=== PATIENT | male | born 1965 | race Caucasian/White ===

== ENCOUNTER 2021-03-01 08:18 | Emergency (ER) | payer MEDICARE, SELFPAY ==
[~2021-03-01 08:18] MED LIST: ALLEGRA ALLERG180 MG PO; ASPIRIN CHEWABL81 MG PO; BENAZEPRIL HCL20 MG PO; BENTYL 20MG TAB20 MG PO; CARBATROL200 MG PO; CELEBREX 200MG200 MG PO; CLOPIDOGREL75 MG PO; COREG6.25 MG PO; CYCLOBENZAPRINE10 MG PO; GABAPENTIN100 MG NG; GLUCOPHAGE500 MG PO; IMDUR ER TAB 6060 MG PO; K-DUR TAB 10 M10 MEQ PO; LEVSIN TAB 00.125 MG PO; LIPITOR80 MG PO; LORTAB 7.5-3251 EACH PO; NORVASC10 MG PO; NOVOLIN 70100 UNIT/2 SQ; PLAQUENIL200 MG PO; PROTONIX40 MG PO; XIFAXAN 550 MG550 MG PO; ZOFRAN ODT 4 MG4 MG PO
[2021-03-01 09:36] LABS: HEMOGLOBIN 16.1 gm/dl (14.0-17.5); WHITE BLOOD COUNT 8.1 K/UL (4.5-11.0)
[2021-03-01 10:12] LABS: BUN/CREATININE RATIO 14 (0-10)
== END 2021-03-01 10:59 | disposition home or self-care (01) ==
LOC: ER1 08:18
PROVIDERS: Student in an Organized Health Care Education/Training Program
DX: E87.5 Hyperkalemia (principal); R94.8 Abnormal results of function studies of other organs and systems; E11.9 Type 2 diabetes mellitus without complications; I25.10 Atherosclerotic heart disease of native coronary artery without angina pectoris; I10 Essential (primary) hypertension; Z95.1 Presence of aortocoronary bypass graft; F17.210 Nicotine dependence, cigarettes, uncomplicated; Z79.899 Other long term (current) drug therapy
CPT/HCPCS: 80053; 82550; 82553; 83874; 84484; 85025; 93005; 99285